=== PATIENT | female | born 1990 | race Caucasian/White ===

== ENCOUNTER 2017-08-22 08:57 | Day surgery (SDC) | payer BC, MEDICAID ==
[2017-08-22 09:42] LABS: HEMATOCRIT 41.7 % (36.0-47.0); HEMOGLOBIN 14.1 g/dL (12.0-15.5); MEAN CORPUSCULAR HEMOGLOBIN 29.8 pg (27.0-33.4); MEAN CORPUSCULAR HGB CONC 33.7 g/dL (32.0-36.0); MEAN CORPUSCULAR VOLUME 88 fl (80-97); PLATELET COUNT 260 10^3/uL (150-450); RED BLOOD COUNT 4.72 10^6/uL (3.72-5.28); RED CELL DISTRIBUTION WIDTH 13.7 % (11.5-14.0); WHITE BLOOD COUNT 15.8 10^3/uL (4.0-10.5)
[2017-08-22] MEDS ORDERED: SCOPOLAMINE HYDROBROMIDE 1.5 MG PATCH.TD72 ONE (09:52)
[2017-08-22] MEDS ORDERED: LIDOCAINE 2% INJ-PF (20 MG/ML) 10 ML AMPUL ONE (10:59)
[2017-08-22] MEDS ORDERED: FENTANYL CITRATE INJ/PF 100 MCG/2 ML AMPUL ONE (10:59)
[2017-08-22] MEDS ORDERED: MIDAZOLAM 2 MG/2 ML INJ ONE (10:59)
[2017-08-22] MEDS ORDERED: PROPOFOL INJ 200 MG/20 ML VIAL IV ONE (11:00)
[2017-08-22] MEDS ORDERED: DEXAMETHASONE SOD PHOSPHATE INJ 4 MG/1 ML VIAL ONE (11:00)
[2017-08-22] MEDS ORDERED: LIDOCAINE 2%/EPINEPHRINE INJ 20 ML VIAL ONE (11:31)
[2017-08-22] MEDS ORDERED: PROMETHAZINE HCL INJ 25 MG/1 ML VIAL IV PRN ×2 (11:35)
[2017-08-22] MEDS ORDERED: DIPHENHYDRAMINE HCL 50 MG/ML VIAL IV PRN (11:35)
[2017-08-22] MEDS ORDERED: FENTANYL CITRATE INJ/PF 100 MCG/2 ML AMPUL IV PRN ×3 (11:35)
[2017-08-22] MEDS ORDERED: MEPERIDINE HCL/PF INJ 25 MG/1 ML DISP.SYRIN IV PRN (11:35)
[2017-08-22] MEDS ORDERED: MORPHINE SULFATE 10 MG/ML INJ IV PRN (11:35)
[2017-08-22] MEDS ORDERED: ONDANSETRON HCL INJ/PF 4 MG/2 ML SDV IV PRN (11:35)
[2017-08-22] MEDS ORDERED: ACETAMINOPHEN 1,000 MG/100 ML RTUPB IV ONE (11:55)
--- NOTE | 2017-08-22 12:15 | OPERATIVE REPORT E ---
Operative Report NAME: QIAN REHMAN : 1990 AGE: 27Y DATE OF SURGERY: 08/22/2017 ROOM: PREOPERATIVE DIAGNOSIS: Missed . POSTOPERATIVE DIAGNOSIS: Missed . PROCEDURE: Suction dilatation and curettage. SURGEON: VANNESA BARRETT M.D. ANESTHESIA: Dr. Hernandez with conscious sedation. FINDINGS: Minimal tissue. Uterus that sounded to approximately 11 cm. Patient indicated that she had been passing tissue at home. COMPLICATIONS: None. ESTIMATED BLOOD LOSS: 50 mL. SPECIMENS REMOVED: Products of conception. PROCEDURE IN DETAIL: The patient was taken to the operating room, prepared, and draped in a normal sterile fashion in the dorsal lithotomy position. Under sterile conditions in-and-out catheter was performed with approximately 250 mL of clear urine. A sterile speculum was placed in the vagina and the cervix was prepped with Betadine. The cervix was then injected with approximately 10 mL of lidocaine 2% with epinephrine for analgesia. The cervix was noted to be slightly dilated at the beginning of the procedure. It was dilated to accommodate a 10 cm curved curette. The uterus was sounded to approximately 10 to 11 cm. The suction curette was passed several times with minimal tissue obtained. There was tissue that was noted at the os at the beginning of the procedure which led me to believe that the bulk of the tissue had been passed already. The uterus was sharply curettaged with a Kevorkian curette with good grit felt in 360 degrees. The instruments were then removed and the patient was taken to the PACU in stable condition. Sponge, lap, and needle counts were correct x2. DICTATING PHYSICIAN: VANNESA BARRETT M.D. [id number] PHY#: [id number] ID: [id number] JOB#: [id number] ACCT: [id number] cc:VANNESA BARRETT M.D. >
[2017-08-22] MEDS ORDERED: RINGERS SOLUTION,LACTATED 1,000 ML IV PRN (12:19)
[2017-08-22] MEDS ORDERED: MORPHINE SULFATE 10 MG/ML INJ IM PRN (12:19)
[2017-08-22] MEDS ORDERED: IBUPROFEN 800 MG TABLET PO PRN (12:20)
[2017-08-22] MEDS ORDERED: OXYCODONE-ACETAMINOPHEN 5-325 MG TABLET PO PRN ×2 (12:20)
[2017-08-22 14:20] VITALS: BP 109/66
== END 2017-08-22 13:30 | disposition home or self-care (01) ==
LOC: OROUT 08:57
PROVIDERS: ATTEND Obstetrics & Gynecology
DX: O02.1 Missed abortion (principal); Z87.891 Personal history of nicotine dependence
CPT/HCPCS: 36415; 85027; 88305 ×2; 59820; J2250; J1100; J3010; J3490 ×2; J2704; J0131; 1965

== ENCOUNTER 2020-01-13 21:09 | Emergency (ER) | payer BC, MEDICAID ==
[2020-01-13] MEDS ORDERED: RINGERS SOLUTION,LACTATED 1,000 ML IV ONE (21:29)
--- NOTE | 2020-01-13 21:29 | ER Document Report ---
ED Medical Screen (RME) - General Chief Complaint: Dizziness Stated Complaint: DIZZINESS,CHEST PAIN,COUGH,LOSS OF SMELL AND TASTE Time Seen by Provider: 01/13/20 21:25 Primary Care Provider: VANNESA BARRETT MD [Primary Care Provider] - Follow up as needed Mode of Arrival: Ambulatory Information source: Patient Notes: HPI; 30-year-old female presents to the emergency room complaining of a runny nose, cough, pressure in her ears, dizziness, loss of taste and smell for the past 2 days. Denies any fevers. Denies any COVID-19 exposure. No previous COVID-19 testing. Has been taking Mucinex without relief. PE: Alert and oriented x3. Lungs: Clear to auscultation without rales, rhonchi, wheezes. Heart: Tachycardic without murmurs, rubs, gallops. Patient was evaluated during the global COVID-19 pandemic and that diagnosis was suspected/considered upon their initial presentation. Their evaluation, treatment and testing was consistent with current guidelines for patients who presents with complaints or systems that may be related to COVID-19. I have greeted and performed a rapid initial assessment of this patient. A comprehensive ED assessment and evaluation of the patient, analysis of test results and completion of the medical decision making process will be conducted by additional ED providers. I have specifically instructed the patient or fa connie members with the patient to immediately return to any nursing staff should anything change in the patient's condition or with their chief complaint. TRAVEL OUTSIDE OF THE [place] IN LAST 30 DAYS: No - Related Data Allergies/Adverse Reactions: No Known Allergies Allergy (Verified 11/08/14 20:36) Past Medical History - Past Medical History Cardiac Medical History: Denies: Hx Coronary Artery Disease, Hx Heart Attack, Hx Hypertension Pulmonary Medical History: Reports: Hx Bronchitis - childhood Denies: Hx Asthma, Hx COPD, Hx Pneumonia Neurological Medical History: Denies: Hx Cerebrovascular Accident, Hx Seizures GI Medical History: Reports: Hx Gastroesophageal Reflux Disease - w/ Musculoskeltal Medical History: Denies Hx Arthritis Past Surgical History: Denies: Hx Pacemaker - Immunizations Hx Diphtheria, Pertussis, Tetanus Vaccination: Yes Physical Exam - Vital signs Vitals: Temp Pulse Resp BP Pulse Ox 99.0 F 133 H 18 142/77 H 100 01/13/20 21:16 01/13/20 21:16 01/13/20 21:16 01/13/20 21:16 01/13/20 21:16 Course - Vital Signs Vital signs: Temp Pulse Resp BP Pulse Ox 99.0 F 133 H 18 142/77 H 100 01/13/20 21:16 01/13/20 21:16 01/13/20 21:16 01/13/20 21:16 01/13/20 21:16 Doctor's Discharge - Discharge Referrals: VANNESA BARRETT MD [Primary Care Provider] - Follow up as needed
--- NOTE | 2020-01-13 22:45 | RADIOLOGY REPORT (SQ) ---
EXAM DESCRIPTION: Site: CHEST SINGLE VIEW RP: XR CHEST 1 VIEW CLINICAL HISTORY: 30 years Female; cough; COMPARISON: None. FINDINGS: Lungs: Lungs are clear, with no focal infiltrate, pneumothorax, or pleural effusion. Mediastinum: Mediastinum is within normal limits for this positioning. Bones: Bony structures are unremarkable. IMPRESSION: 1. No acute pulmonary findings.
[2020-01-13 22:57] LABS: ABSOLUTE EOSINOPHILS # (AUTO) 0.2 10^3/uL (0.0-0.6); ABSOLUTE LYMPHOCYTES (AUTO) 1.1 10^3/uL (0.5-4.7); ABSOLUTE MONOCYTES (AUTO) 0.7 10^3/uL (0.1-1.4); ABSOLUTE NEUT (AUTO) 9.1 10^3/uL (1.7-8.2); APPEARANCE,URINE CLEAR; BASOPHILS % (AUTO) 0.2 % (0-2); BILIRUBIN,URINE NEGATIVE (NEGATIVE); COLOR,URINE YELLOW; EOSINOPHILS % (AUTO) 1.6 % (0-6); GLUCOSE, URINE NEGATIVE (NEGATIVE); HEMATOCRIT 39.5 % (36.0-47.0); HEMOGLOBIN 13.8 g/dL (12.0-15.5); KETONES,URINE NEGATIVE (NEGATIVE); LEUKOCYTE ESTERASE,URINE TRACE (NEGATIVE); LYMPHOCYTES % (AUTO) 9.8 % (13-45); MEAN CORPUSCULAR HEMOGLOBIN 30.7 pg (27.0-33.4); MEAN CORPUSCULAR HGB CONC 34.9 g/dL (32.0-36.0); MEAN CORPUSCULAR VOLUME 88 fl (80-97); MONOCYTES % (AUTO) 6.2 % (3-13); NITRITE,URINE NEGATIVE (NEGATIVE); PLATELET COUNT 267 10^3/uL (150-450); PROTEIN,URINE NEGATIVE (NEGATIVE); RED BLOOD COUNT 4.49 10^6/uL (3.72-5.28); RED CELL DISTRIBUTION WIDTH 12.9 % (11.5-14.0); SEGMENTED NEUTROPHILS % (AUTO) 82.2 % (42-78); TOTAL CELLS COUNTED % (AUTO) 100 %; UROBILINOGEN,URINE NEGATIVE mg/dL (<2.0)
[2020-01-13 23:20] LABS: ALBUMIN 4.6 g/dL (3.5-5.0); ALKALINE PHOSPHATASE 91 U/L (38-126); ANION GAP 7 (5-19); ASPARTATE AMINO TRANSFERASE 30 U/L (14-36); BILIRUBIN,DIRECT 0.1 mg/dL (0.0-0.4); BILIRUBIN,TOTAL 0.3 mg/dL (0.2-1.3); BLOOD UREA NITROGEN 13 mg/dL (7-20); CALCIUM 9.6 mg/dL (8.4-10.2); CARBON DIOXIDE 27 mmol/L (22-30); CHLORIDE 103 mmol/L (98-107); GLUCOSE 117 mg/dL (75-110); POTASSIUM 4.2 mmol/L (3.6-5.0); TOTAL PROTEIN 7.1 g/dL (6.3-8.2)
--- NOTE | 2020-01-14 01:07 | ER Document Report ---
ED Flu Like - General Chief Complaint: Flu Symptoms Stated Complaint: DIZZINESS,CHEST PAIN,COUGH,LOSS OF SMELL AND TASTE Time Seen by Provider: 01/13/20 21:25 Primary Care Provider: VANNESA BARRETT MD [ACTIVE STAFF] - Follow up as needed Mode of Arrival: Ambulatory Information source: Patient Notes: 03/14/19 23:25 - ED Nursing Note by [facility]: [id number] : 1990 Patient Age: [age] Y/O FEMALE, PRESENTS WITH 2 DAYS OF COUGH, RUNNY NOSE, CONGESTION, LOSS OF TASTE AND SMELL, DENIES COVID EXPOSURE. Initialized on 01/13/20 23:25 - END OF NOTE ED Medical Screen ([facility] notes) - General Chief Complaint: Dizziness Stated Complaint: DIZZINESS,CHEST PAIN,COUGH,LOSS OF SMELL AND TASTE Time Seen by Provider: 01/13/20 21:25 Primary Care Provider: VANNESA BARRETT MD [Primary Care Provider] - Follow up as needed Mode of Arrival: Ambulatory Information source: Patient Notes: HPI; 30-year-old female presents to the emergency room complaining of a runny nose, cough, pressure in her ears, dizziness, loss of taste and smell for the past 2 days. Denies any fevers. Denies any COVID-19 exposure. No previous COVID-19 testing. Has been taking Mucinex without relief. PE: Alert and oriented x3. Lungs: Clear to auscultation without rales, rhonchi, wheezes. Heart: Tachycardic without murmurs, rubs, gallops. Patient was evaluated during the global COVID-19 pandemic and that diagnosis was suspected/considered upon their initial presentation. Their evaluation, treatment and testing was consistent with current guidelines for patients who presents with complaints or systems that may be related to COVID-19. MY NOTES 30-year-old female arrives with 48 hours of rhinorrhea nonproductive cough nasal congestion loss of taste and smell and denies any coronavirus exposure or influenza virus exposure. She denies any out of country exposure. 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 Patient advises she has no sore throat but does have nasal congestion and green productive cough. She also complains of some ear congestion. She denies any skin lesions nuchal rigidity cephalgia fever chills. Patient arrives with a 99 temperature and tachycardia 133; patient reports when she had her last child she was diagnosed with tachycardia and saw Dr. Sar[facility], she believes. TRAVEL OUTSIDE OF THE [place] IN LAST 30 DAYS: No - HPI Onset: Yesterday - Related Data Allergies/Adverse Reactions: No Known Allergies Allergy (Verified 01/13/20 23:23) Past Medical History - General Information source: Patient - Social History Smoking Status: Former Smoker Cigarette use (# per day): No Chew tobacco use (# tins/day): No Smoking Education Provided: No Frequency of alcohol use: None Drug Abuse: None Lives with: Family Family History: Reviewed & Not Pertinent Patient has suicidal ideation: No Patient has homicidal ideation: No - Past Medical History Cardiac Medical History: Denies: Hx Coronary Artery Disease, Hx Heart Attack, Hx Hypertension Pulmonary Medical History: Reports: Hx Bronchitis - childhood Denies: Hx Asthma, Hx COPD, Hx Pneumonia Neurological Medical History: Denies: Hx Cerebrovascular Accident, Hx Seizures GI Medical History: Reports: Hx Gastroesophageal Reflux Disease - w/ Musculoskeletal Medical History: Denies Hx Arthritis Past Surgical History: Denies: Hx Pacemaker - Immunizations Hx Diphtheria, Pertussis, Tetanus Vaccination: Yes Review of Systems - Review of Systems Constitutional: See HPI, Fever, Weakness EENT: See HPI, Ear pain, Nose congestion Cardiovascular: No symptoms reported Respiratory: See HPI, Cough Gastrointestinal: No symptoms reported Genitourinary: No symptoms reported Female Genitourinary: No symptoms reported Musculoskeletal: No symptoms reported Skin: No symptoms reported Hematologic/Lymphatic: No symptoms reported Neurological/Psychological: No symptoms reported -: Yes All other systems reviewed and negative Physical Exam - Vital signs Vitals: Temp Pulse Resp BP Pulse Ox 99.0 F 133 H 18 142/77 H 100 01/13/20 21:16 01/13/20 21:16 01/13/20 21:16 01/13/20 21:16 01/13/20 21:16 Interpretation: Tachycardic, Febrile - General General appearance: Appears well, Alert - HEENT Head: Normocephalic, Atraumatic Eyes: Normal Pupils: PERRL Ears: Normal Tympanic membrane: Serous effusion - R>L TMs Sinus: Normal Mouth/Lips: Normal Mucous membranes: Normal Pharynx: Normal Neck: Normal - Respiratory Respiratory status: No respiratory distress Chest status: Nontender Breath sounds: Normal Chest palpation: Normal - Cardiovascular Rhythm: Tachycardia Heart sounds: Normal auscultation Murmur: No - Abdominal Inspection: Normal Distension: No distension Bowel sounds: Normal Tenderness: Nontender Organomegaly: No organomegaly - Rectal Hemorrhoids: Other - deferred - Genitourinary Bimanuel exam: Other - deferred - Back Back: Normal, Nontender - Extremities General upper extremity: Normal inspection, Nontender, Normal color, Normal ROM, Normal temperature General lower extremity: Normal inspection, Nontender, Normal color, Normal ROM, Normal temperature, Normal weight bearing. No: Shankar's sign - Neurological Neuro grossly intact: Yes Cognition: Normal Orientation: AAOx4 Aniya Coma Scale Eye Opening: Spontaneous [place] Coma Scale Verbal: Oriented [place] Coma Scale Motor: Obeys Commands [place] Coma Scale Total: 15 Speech: Normal Motor strength normal: LUE, RUE, LLE, RLE Sensory: Normal - Psychological Associated symptoms: Normal affect, Normal mood - Skin Skin Temperature: Warm Skin Moisture: Dry Skin Color: Normal Course - Vital Signs Vital signs: Temp Pulse Resp BP Pulse Ox 99.0 F 133 H 18 142/77 H 100 01/13/20 21:16 01/13/20 21:16 01/13/20 21:16 01/13/20 21:16 01/13/20 21:16 - Laboratory Result Diagrams: 01/13/20 22:42 01/13/20 22:42 Laboratory results interpreted by me: 01/13/20 01/13/20 01/13/20 22:42 22:42 22:42 WBC 11.0 H Lymph % (Auto) 9.8 L Absolute Neuts (auto) 9.1 H Seg Neutrophils % 82.2 H Sodium 136.9 L Glucose 117 H Urine Blood MODERATE H Ur Leukocyte Esterase TRACE H - Diagnostic Test Radiology reviewed: Reports reviewed Discharge - Discharge Clinical Impression: Tachycardia URI (upper respiratory infection) Qualifiers: URI type: unspecified URI Qualified Code(s): J06.9 - Acute upper respiratory infection, unspecified Condition: Good Disposition: HOME, SELF-CARE Instructions: Upper Respiratory Illness ([facility]) Additional Instructions: You have been tested for COVID-19 for must remain quarantine until your test returns. Please be aware your chest x-ray has interstitial pattern and your temperature is mildly elevated at 99 upon arrival. Also your heart rate is higher. Take medicines as directed encourage fluids try not to exercise or overextend yourself. Off work as directed. Follow-up with [facility] Prescriptions: Dexamethasone [Decadron 4 Mg Tablet] 4 mg PO DAILY #5 tablet Famotidine [Pepcid 20 mg Tablet] 20 mg PO BID #12 tablet Azithromycin [Zithromax 250 mg Tablet] 250 mg PO ASDIR PRN #6 tablet PRN Reason: Forms: Return to Work Referrals: VANNESA BARRETT MD [ACTIVE STAFF] - Follow up as needed ALPHONSO RODRIGUEZ MD [ACTIVE PROVISIONAL STAFF] - Follow up as needed
[2020-01-14] MEDS ORDERED: AZITHROMYCIN 250 MG TABLET PO ONE (01:32)
[2020-01-14] MEDS ORDERED: DEXAMETHASONE 4 MG TABLET PO ONE (01:32)
[2020-01-14] MEDS ORDERED: FAMOTIDINE 20 MG TABLET PO ONE (01:32)
[2020-01-14 02:28] LABS: A TYPE INFLUENZA AG NEGATIVE (NEGATIVE); B INFLUENZA AG NEGATIVE (NEGATIVE)
--- NOTE | 2020-01-14 03:28 | RADIOLOGY REPORT (SQ) ---
CLINICAL INDICATION: fever cough tachycardia, HCG NEG. . TECHNIQUE: CT arteriography was obtained of the chest with multiplanar MIP and/or 3-D angiographic reconstructions. This exam was performed according to our departmental dose-optimization program, which includes automated exposure control, adjustment of the mA and/or kV according to patient size and/or use of iterative reconstruction techniques. 100 cc of Isovue 370 administered intravenously without complication. COMPARISON: None. CORRELATION: None. FINDINGS: Heterogeneous contrast bolus. Average Hounsfield unit measurement within main pulmonary artery segment of 247. Artifact from venous opacification. Motion artifact There is no evidence of pulmonary embolus. Small branch vessels are not well seen due to artifact Thoracic aorta is of normal caliber. The heart is of normal size. No pericardial effusion. No bulky mediastinal adenopathy. The lungs are grossly clear. No consolidation or edema. No effusion or pneumothorax. Detail obscured by motion Visualized abdominal contents demonstrate cholelithiasis without inflammatory change. Visualized bones are unremarkable. IMPRESSION: Imaging is degraded by patient motion, with resultant artifact. The best possible images were obtained. No central pulmonary embolus. Lungs grossly clear. .
[2020-01-14 03:41] VITALS: BP 120/86
== END 2020-01-14 03:41 | disposition home or self-care (01) ==
LOC: ER 21:09
DX: J06.9 Acute upper respiratory infection, unspecified (principal); R00.0 Tachycardia, unspecified; R42 Dizziness and giddiness; R43.8 Other disturbances of smell and taste; R53.1 Weakness; Z20.828 Contact with and (suspected) exposure to other viral communicable diseases
CPT/HCPCS: 99285; 36415; 84443; 84703; 85025; 87635; 80053; 81001; 85379; 87804; 71045; 71275; J3490 ×2; Q0144; C9803; J8540

== ENCOUNTER 2020-01-26 08:31 | Emergency (ER) | payer MEDICAID ==
--- NOTE | 2020-01-26 09:50 | RADIOLOGY REPORT (SQ) ---
EXAM DESCRIPTION: CHEST 2 VIEWS IMAGES COMPLETED DATE/TIME: 01/26/2020 9:35 am REASON FOR STUDY: Chest Pain COMPARISON: 01/13/2020 EXAM PARAMETERS: NUMBER OF VIEWS: two views TECHNIQUE: Digital Frontal and Lateral radiographic views of the chest acquired. RADIATION DOSE: NA LIMITATIONS: none FINDINGS: LUNGS AND PLEURA: No opacities, masses or pneumothorax. No pleural effusion. MEDIASTINUM AND HILAR STRUCTURES: No masses or contour abnormalities. HEART AND VASCULAR STRUCTURES: Heart normal size. No evidence for failure. BONES: No acute findings. HARDWARE: None in the chest. OTHER: No other significant finding. IMPRESSION: NO ACUTE RADIOGRAPHIC FINDING IN THE CHEST. TECHNICAL DOCUMENTATION: JOB ID: [id number] 2010 [employer]- All Rights Reserved Reading location - IP/workstation name: [email or web address]
[2020-01-26] MEDS ORDERED: NORMAL SALINE 1000 ML 1,000 ML IV ONE (09:59)
--- NOTE | 2020-01-26 10:24 | ER Document Report ---
ED Cardiac - General Chief Complaint: Chest Pain Stated Complaint: CHEST PAIN Time Seen by Provider: 01/26/20 09:41 Primary Care Provider: ALEXEY MOORE MD [ACTIVE STAFF] - Follow up tomorrow NADIYA GREY NP [Primary Care Provider] - Follow up as needed Mode of Arrival: Ambulatory Information source: Patient Notes: Patient presents complaining of cold symptoms for the past few weeks. Patient states that she was here about 2 weeks ago with palpitations, chest tightness, mild cough, lightheadedness. Patient states that she had been discharged with plans to follow-up with cardiology. Patient states she attempted to contact plsql developer although found out that that plsql developer had retired. Patient is awaiting outpatient follow-up with cardiology. Patient states that she does have a previous history of palpitations while [address] ates she did have a Holter monitor placed at that time and saw cardiology who determined that she was having normal changes associated with gestation. Patient states today that she was getting ready for [facility] and started to have palpitations, chest tightness and felt faint. Patient states that she was having dizziness that she describes as spinning sensation as well as feeling off balance. Patient states that her palpitations are resolved at this time although she does occasionally feel dizzy. When patient presented to the emergency department with her symptoms an EKG was done at that time and heart rate was 166 at that time. Patient does admit to drinking tea although denies any other diet supplements or energy supplements. She denies any use of illicit substances. TRAVEL OUTSIDE OF THE [place] IN LAST 30 DAYS: No - HPI Patient complains to provider of: Chest tightness, Palpitations Use of: Caffeine Quality of pain: Tightness Chest pain precipitating factors: At Rest Cardiac risk factors: + Family history, Dyslipidemia. denies: Smoker Positive cardiac history: No Associated symptoms: Anxiety, Dizziness, Lightheaded, Palpitations. denies: Back pain Exacerbated by: Denies Relieved by: Nothing Similar symptoms previously: Yes Recently seen / treated by doctor: Yes - Related Data Allergies/Adverse Reactions: No Known Allergies Allergy (Verified 01/13/20 23:23) Past Medical History - General Information source: Patient - Social History Smoking Status: Never Smoker Frequency of alcohol use: None Drug Abuse: None Occupation: Retail Lives with: Family Family History: CAD Patient has suicidal ideation: No Patient has homicidal ideation: No - Past Medical History Cardiac Medical History: Reports: Hx Hypercholesterolemia Denies: Hx Coronary Artery Disease, Hx Heart Attack, Hx Hypertension Pulmonary Medical History: Reports: Hx Bronchitis - childhood Denies: Hx Asthma, Hx COPD, Hx Pneumonia Neurological Medical History: Denies: Hx Cerebrovascular Accident, Hx Seizures GI Medical History: Reports: Hx Gastroesophageal Reflux Disease - w/ Musculoskeletal Medical History: Denies Hx Arthritis Psychiatric Medical History: Reports: Hx Anxiety Past Surgical History: Reports: Hx Dilation and Curettage. Denies: Hx Pacemaker - Immunizations Hx Diphtheria, Pertussis, Tetanus Vaccination: Yes Review of Systems - Review of Systems Constitutional: Recent illness - Recent cold symptoms a few weeks ago. denies: Fever EENT: No symptoms reported Cardiovascular: Chest pain, Palpitations, Heart racing, Dizziness, Lightheaded Respiratory: Cough Gastrointestinal: No symptoms reported. denies: Vomiting Genitourinary: No symptoms reported. denies: Dysuria Female Genitourinary: No symptoms reported Musculoskeletal: No symptoms reported. denies: Back pain, Leg swelling Skin: No symptoms reported Hematologic/Lymphatic: No symptoms reported Neurological/Psychological: Anxiety Physical Exam - Vital signs Vitals: Resp BP Pulse Ox 13 139/88 H 100 01/26/20 08:43 01/26/20 08:43 01/26/20 08:43 - General General appearance: Appears well, Alert, Anxious In distress: None - HEENT Head: Normocephalic, Atraumatic Eyes: Normal Conjunctiva: Normal Nasal: Normal Mouth/Lips: Normal Mucous membranes: Normal Neck: Normal, Supple. No: Lymphadenopathy - Respiratory Respiratory status: No respiratory distress Chest status: Nontender Breath sounds: Normal. No: Rales, Rhonchi, Stridor, Wheezing Chest palpation: Normal - Cardiovascular Rhythm: Tachycardia Heart sounds: S1 appreciated, S2 appreciated Murmur: No - Back Back: Normal, Nontender - Extremities General upper extremity: Normal inspection, Normal ROM General lower extremity: Normal inspection, Normal ROM. No: Edema - Neurological Neuro grossly intact: Yes Cognition: Normal Hubbard Coma Scale Eye Opening: Spontaneous Hubbard Coma Scale Verbal: Oriented Aniya Coma Scale Motor: Obeys Commands Hubbard Coma Scale Total: 15 - Skin Skin Temperature: Warm Skin Moisture: Dry Skin Color: Normal Course - Re-evaluation Re-evalutation: 01/26/20 13:[address] Moore who is on for cardiology for consultation, reviewed patient's presentation and diagnostic evaluation from today and her recent ER visit. Advises having patient follow-up in his office this week for further evaluation and he may consider placing event monitor on patient and possibly set ting her up for an outpatient stress test. Consulted with Dr. Alvares regarding patient presentation and diagnostic evaluation. He does recommend giving short prescription of potassium and having her see her primary doctor to have it rechecked this week. Agrees with discharge clinic at this time. 01/26/20 14:03 Patient heart rate in the 80s, patient complains of occasional dizziness, patient does have serous effusion to the left ear, will give patient meclizine at this time. Patient advised of diagnostic results and discharge plan of care. Patient encouraged to consult with plsql developer Monday for outpatient follow-up appointment. Patient also advised that she will need a recheck of her chemistry panel given her hypokalemia today and that neither her primary doctor or the plsql developer can repeat this test for her. Presentation of chest pain in an otherwise well appearing patient. Low clinical suspicion for ACS given clinical history, exam, EKG without ST elevations or depressions, and negative initial and delta troponin. HEART score less than or equal to 3. PE also seems unlikely as patient just had a recent negative CTA for PE. CXR without evidence of pneumothorax or pneumonia. No widened mediastinum. Chest pain in a patient without evidence of cardiac or other serious etiology on workup today. I discussed with patient that, based on their age, risk factors and emergency department testing today, the likelihood that their symptoms are related to a heart attack is very low. The patient demonstrates decision making capacity and has verbalized an understanding of these risks to me. Based on this, the patient has chosen to follow-up as an outpatient. Usual chest pain return precautions reviewed. The patient states understanding and agreement with this plan. - Vital Signs Vital signs: Temp Pulse Resp BP Pulse Ox 98.4 F 14 112/77 100 01/26/20 14:17 01/26/20 14:16 01/26/20 14:17 01/26/20 14:17 - Laboratory Result Diagrams: 01/26/20 08:44 01/26/20 08:44 Laboratory results interpreted by me: 01/26/20 01/26/20 08:44 08:44 WBC 11.0 H Potassium 3.0 L* Glucose 111 H Labs- All tests 24 hr 01/26/20 01/26/20 01/26/20 08:44 08:44 08:44 WBC 11.0 H RBC 4.78 Hgb 14.3 Hct 42.4 MCV 89 MCH 30.0 MCHC 33.8 RDW 13.4 Plt Count 298 Lymph % (Auto) 41.0 Ocean % (Auto) 7.4 Eos % (Auto) 1.3 Baso % (Auto) 0.3 Absolute Neuts (auto) 5.5 Absolute Lymphs (auto) 4.5 Absolute Monos (auto) 0.8 Absolute Eos (auto) 0.1 Absolute Basos (auto) 0.0 Seg Neutrophils % 50.0 Sodium 139.3 Potassium 3.0 L* Chloride 104 Carbon Dioxide 25 Anion Gap 10 BUN 13 Creatinine 0.79 Est GFR ( Amer) > 60 Est GFR (MDRD) Non-Af > 60 Glucose 111 H Calcium 9.8 Magnesium Total Bilirubin 0.4 Direct Bilirubin 0.1 Neonat Total Bilirubin Not Reportable Neonat Direct Bilirubin Not Reportable Neonat Indirect Bili Not Reportable AST 23 ALT 23 Alkaline Phosphatase 80 Troponin I < 0.012 Total Protein 7.2 Albumin 4.6 01/26/20 01/26/20 08:44 12:31 WBC RBC Hgb Hct MCV MCH MCHC RDW Plt Count Lymph % (Auto) Ocean % (Auto) Eos % (Auto) Baso % (Auto) Absolute Neuts (auto) Absolute Lymphs (auto) Absolute Monos (auto) Absolute Eos (auto) Absolute Basos (auto) Seg Neutrophils % Sodium Potassium Chloride Carbon Dioxide Anion Gap BUN Creatinine Est GFR ( Amer) Est GFR (MDRD) Non-Af Glucose Calcium Magnesium 1.9 Total Bilirubin Direct Bilirubin Neonat Total Bilirubin Neonat Direct Bilirubin Neonat Indirect Bili AST ALT Alkaline Phosphatase Troponin I < 0.012 Total Protein Albumin - Diagnostic Test Radiology reviewed: Reports reviewed - Reviewed patient's prior ED visit and CTA report - EKG Interpretation by Me EKG shows normal: Sinus rhythm Rate: Tachycardia When compared to previous EKG there are: Previous EKG unavailable Additional EKG results interpreted by me: 01/26/20 14:03 Patient with sinus tachycardia with a rate of 161, QTc 413, no acute ischemic changes. Discharge - Discharge Clinical Impression: Hypokalemia, Tachycardia Serous otitis media Qualifiers: Chronicity: unspecified Laterality: left Qualified Code(s): H65.92 - Unspecified nonsuppurative otitis media, left ear Chest pain Qualifiers: Chest pain type: unspecified Qualified Code(s): R07.9 - Chest pain, unspecified Condition: Stable Disposition: HOME, SELF-CARE Instructions: Chest Pain of Unclear Cause ([facility]), Hypokalemia ([facility]), Palpitations (Irregular or Rapid Heartrate) ([facility]), Serous Otitis Media ([facility]) Additional Instructions: Return immediately for any new or worsening symptoms: Chest pain, shortness of breath, rapid heart rate, any worsening symptoms Followup with your primary care provider, call tomorrow to make a followup appointment Your potassium was low today, you will need to see your primary doctor to have this rechecked in the next 3 to 4 days. Follow-up with Dr. Moore, call his office tomorrow to make an appointment for this week. Prescriptions: Meclizine HCl [Antivert 25 mg Tablet] 25 mg PO ASDIR PRN #15 tablet PRN Reason: Potassium Chloride 20 meq PO BID #6 tablet.er Referrals: NADIYA GREY NP [Primary Care Provider] - Follow up as needed ALEXEY MOORE MD [ACTIVE STAFF] - Follow up tomorrow
[2020-01-26 11:14] LABS: ABSOLUTE EOSINOPHILS # (AUTO) 0.1 10^3/uL (0.0-0.6); ABSOLUTE LYMPHOCYTES (AUTO) 4.5 10^3/uL (0.5-4.7); ABSOLUTE MONOCYTES (AUTO) 0.8 10^3/uL (0.1-1.4); ABSOLUTE NEUT (AUTO) 5.5 10^3/uL (1.7-8.2); BASOPHILS % (AUTO) 0.3 % (0-2); EOSINOPHILS % (AUTO) 1.3 % (0-6); HEMATOCRIT 42.4 % (36.0-47.0); HEMOGLOBIN 14.3 g/dL (12.0-15.5); MEAN CORPUSCULAR HGB CONC 33.8 g/dL (32.0-36.0); MEAN CORPUSCULAR VOLUME 89 fl (80-97); MONOCYTES % (AUTO) 7.4 % (3-13); PLATELET COUNT 298 10^3/uL (150-450); RED BLOOD COUNT 4.78 10^6/uL (3.72-5.28); RED CELL DISTRIBUTION WIDTH 13.4 % (11.5-14.0); TOTAL CELLS COUNTED % (AUTO) 100 %
[2020-01-26 11:24] LABS: ALBUMIN 4.6 g/dL (3.5-5.0); ALKALINE PHOSPHATASE 80 U/L (38-126); ANION GAP 10 (5-19); ASPARTATE AMINO TRANSFERASE 23 U/L (14-36); BILIRUBIN,DIRECT 0.1 mg/dL (0.0-0.4); BILIRUBIN,TOTAL 0.4 mg/dL (0.2-1.3); BLOOD UREA NITROGEN 13 mg/dL (7-20); CALCIUM 9.8 mg/dL (8.4-10.2); CARBON DIOXIDE 25 mmol/L (22-30); CHLORIDE 104 mmol/L (98-107); GLUCOSE 111 mg/dL (75-110); TOTAL PROTEIN 7.2 g/dL (6.3-8.2)
[2020-01-26] MEDS ORDERED: POTASSIUM CHLORIDE 10 MEQ TABLET.ER PO ONE (11:31)
[2020-01-26] MEDS ORDERED: MECLIZINE HCL 25 MG TABLET PO ONE (13:47)
[2020-01-26 14:24] VITALS: BP 112/77
--- NOTE | 2020-01-26 15:05 | EKG REPORT ---
SEVERITY:- ABNORMAL ECG - SINUS TACHYCARDIA INFERIOR Q WAVES, PROBABLY NORMAL VARIATION NONSPECIFIC ST-T CHANGES- INFERIOR LEADS : Confirmed by: Jl Sarabia MD 26-Jan-2020 15:05:00
== END 2020-01-26 14:24 | disposition home or self-care (01) ==
LOC: ER 08:31
DX: H65.92 Unspecified nonsuppurative otitis media, left ear (principal); E87.6 Hypokalemia; R00.0 Tachycardia, unspecified; R07.9 Chest pain, unspecified; E78.00 Pure hypercholesterolemia, unspecified
CPT/HCPCS: 93005; 99285; 96360; 36415; 83735; 85025; 80053; 84484; 71046; 93010; J7030